=== PATIENT | male | born 1965 | race Caucasian/White ===

== ENCOUNTER → 2019-04-07 | Outpatient (CLI) | payer OTHER ==
--- NOTE | 2019-04-09 11:04 | TST ---
[place] [address] TREADMILL STRESS TEST Name: EMORY HERRERA Room: [facility]#: [id number] Admission: 04/07/19 Attend Phys: Deangelo Pennington, Discharge: Date of : 67 Date of Service: 04/07/19 1627 Report #: [id number] THIS REPORT FOR: //name// CC: Deangelo Pennington MD DATE OF SERVICE: 04/07/2019 Resting 12-lead electrocardiogram demonstrates a sinus rhythm with sinus arrhythmia and a minor interventricular conduction delay. The patient exercised for 10 minutes according to a standard Jim protocol, stopping because of fatigue and shortness of breath. Resting heart rate was 70 with a peak 162, 96% of the age predicted maximum. Blood pressure was 123/77 initially, increasing to 168/74 at peak exercise and falling to 150/83 during the post-exercise phase. There were no ischemic ST-T alterations noted during or post-exercise. There were no significant supraventricular or ventricular arrhythmias. IMPRESSION: 1. Negative treadmill exercise test for provocation of ischemic ST-T alterations. 2. No chest pain provoked by exertion. 3. Appropriate heart rate and systolic blood pressure responses to exercise. 4. No significant arrhythmias noted. 5. Satisfactory level of fitness for age. <ELECTRONICALLY SIGNED> By: Roby Lawrence MD, [facility] 04/09/19 1104 [id number] [id number] Roby Lawrence MD, FACC /nt
== END ==
LOC: M.ULTRA 04-05 16:31
DX: R07.2 Precordial pain (principal); R59.1 Generalized enlarged lymph nodes

== ENCOUNTER → 2019-04-19 | Outpatient (CLI) | payer OTHER | LOC: M.ULTRA 07:05 | DX: R10.9 Unspecified abdominal pain (principal) ==

== ENCOUNTER → 2019-07-07 | Outpatient (CLI) | payer OTHER ==
--- NOTE | 2019-07-13 08:09 | PF ---
[address] [address] PULMONARY FUNCTION REPORT Name: EMORY HERRERA Room: [facility] Erlin.Georgina.#: [id number] Admission: 07/07/19 Attend Phys: ELIO HA Discharge: Date of : 67 Report #: [id number] THIS REPORT FOR: //name// CC: ELIO Pennington DATE OF SERVICE: 07/12/2019 FINDINGS: Spirogram shows normal forced vital capacity, normal FEV1, however, decreased ratio of 67%. There was no reversibility. Lung volumes were within normal. Diffusion capacity was within normal. IMPRESSION: Delayed plateauing and decreased FEV1 to FVC ratio consistent with mild obstructive lung disease. Clinical correlation is indicated. <ELECTRONICALLY SIGNED> By: Tariq Caruso MD 07/13/19 0809 [id number] Romelia Pickard MD /nt
== END ==
LOC: M.PUL 09:30
DX: R06.02 Shortness of breath (principal)